=== PATIENT | female | born 1965 | race African-American/Black ===

== ENCOUNTER 2016-11-02 18:13 | Emergency (ER) | payer SELFPAY ==
[~2016-11-02] VITALS: Ht 162.6 cm; Wt 100.0 kg
[~2016-11-02 18:13] MED LIST: HYDR-2768 PO
[2016-11-02 18:15] VITALS: BP 169/111; PULSE 100; RESP 14; TEMP 97.7; O2SAT 100
[2016-12-20] MEDS ORDERED: HYDR25TA5 PO (09:26)
[2016-12-20] MEDS ORDERED: LISI-519 PO ×2 (09:36→10:25)
[2016-12-20] MEDS ORDERED: INSU1SOL SQ (09:39)
[2016-12-20] MEDS ORDERED: METF500T4 PO (09:39)
[2016-12-20] MEDS ORDERED: METF1000 PO (10:23)
[2016-12-20] MEDS ORDERED: BAYETES (10:26)
[2017-01-04] MEDS ORDERED: LISI-519 PO (11:39)
[2017-01-23] MEDS ORDERED: LISI-519 PO (09:42)
[2017-02-28] MEDS ORDERED: LISI-519 PO (09:26)
[2017-02-28] MEDS ORDERED: METF1000 PO (09:26)
[2017-02-28] MEDS ORDERED: BAYETES (09:27)
== END 2016-11-02 20:53 | disposition left against medical advice (07) ==
LOC: NED 18:13
DX: Z53.21 Procedure and treatment not carried out due to patient leaving prior to being seen by health care provider (principal)
CPT/HCPCS: 99281

== ENCOUNTER → 2017-02-23 | Outpatient (CLI) | payer OTHER ==
[~2017-02-23] MED LIST changes: +BAYETES; -HYDR-2768 PO; +INSU1SOL SQ; +LISI-519 PO; +METF1000 PO
[2017-02-23 08:29] LABS: AUTOMATED NEUTROPHIL # 4.4 TH/MM3 (1.8-7.7); BASOPHIL # 0.1 TH/MM3 (0-0.2); BASOPHIL % 0.9 % (0.0-2.0); EOSINOPHIL # 0.1 TH/MM3 (0-0.4); EOSINOPHIL % 1.3 % (0.0-4.0); HEMATOCRIT 36.5 % (35.0-46.0); HEMO FLAGS DIFF FINAL; MEAN CELL VOLUME 73.7 FL (80.0-100.0); MEAN CORPUSCULAR HEMOGLOBIN 23.6 PG (27.0-34.0); MONO % 5.5 % (0.0-8.0); NEUT % 55.3 % (16.0-70.0); PLATELET COUNT 329 TH/MM3 (150-450); RED BLOOD COUNT 4.96 MIL/MM3 (4.00-5.30); RED CELL DISTRIBUTION WIDTH 14.9 % (11.6-17.2)
[2017-02-23 08:36] LABS: ALT (GPT) 14 U/L (10-53); ANION GAP 6 MEQ/L (5-15); AST (GOT) 7 U/L (15-37); BICARBONATE 28.7 MEQ/L (21.0-32.0); BLOOD UREA NITROGEN 11 MG/DL (7-18); CHLORIDE 102 MEQ/L (98-107); GLOMERULAR FILTRATION RATE 119 ML/MIN (>89); GLUCOSE,FASTING 81 MG/DL (74-99); POTASSIUM 3.6 MEQ/L (3.5-5.1); SODIUM (NA) 137 MEQ/L (136-145)
[2017-02-23 08:46] LABS: ALKALINE PHOSPHATASE 67 U/L (45-117); HDL CHOLESTEROL 69.9 MG/DL (40.0-60.0); LDL CHOLESTEROL 95 MG/DL (0-99); TOTAL BILIRUBIN ADULT 0.3 MG/DL (0.2-1.0)
[2017-02-23 17:14] LABS: HEMOGLOBIN A1a 0.9 %; HEMOGLOBIN A1b 1.4 %; HEMOGLOBIN Ao 86.4 %; HEMOGLOBIN LA1C 1.6 %; HEMOGLOBIN P3 3.5 %
== END ==
LOC: CLAB 07:40
PROVIDERS: ATTEND Family Medicine
DX: E11.9 Type 2 diabetes mellitus without complications (principal); E66.9 Obesity, unspecified; Z83.511 Family history of glaucoma
CPT/HCPCS: 36415; 80053; 80061; 83036; 84443; 85025